=== PATIENT | female | born 1965 | race Caucasian/White ===

== ENCOUNTER 2019-04-06 06:17 | Outpatient (CLI) | payer BC ==
[2019-04-06 10:51] LABS: #Basophils 0.1 thou/uL (0.0-0.2); #Eosinphils 0.2 thou/uL (0.0-0.7); #Lymphocytes 1.6 thou/uL (1.20-3.40); #Monocytes 0.5 thou/uL (0.11-0.59); #Neutrophils 2.2 thou/uL (1.40-6.50); %Basophils 1.2 % (0.0-1.0); %Eosinophils 4.9 % (0.0-10.0); %Lymphocytes 35.5 % (21.0-51.0); %Neutrophils 47.4 % (42.0-75.0); Hemoglobin 12.3 g/dL (12.0-16.0); Mean Corpuscular HGB CONC 34.4 g/dL (32.0-36.0); Mean Corpuscular Hemoglobin 30.6 pg (27.0-31.0); Mean Corpuscular Volume 89.1 fL (78.0-98.0); Mean Platelet Volume 8.8 fL (7.4-10.4); Platelet Count 194 thou/uL (130-400); RBC Distribution Width 15.2 % (11.5-14.5); Red Blood Cell (RBC) Count 4.01 mill/uL (4.20-5.40); White Blood Cell (WBC) Count 4.6 thou/uL (4.8-10.8)
[2019-04-06 10:53] LABS: Bilirubin Negative (Negative); Blood, Urine Negative (Negative); Clarity Clear (Clear); Glucose, Urine (Dipstick) Normal (Negative); Leukocyte Negative Leu/uL (Negative); Nitrite Negative (Negative); Protein, Urine (Dipstick) Negative (Neg-Trace); RBC/HPF 0-3 HPF (0-3); Urobilinogen Normal mg/dL (Less than 2); WBC/HPF 0-3 HPF (0-3)
[2019-04-06 10:54] LABS: Bacteria/HPF 1+ HPF (None Seen)
--- NOTE | 2019-04-08 13:36 | EKG ---
Test Reason : Blood Pressure : / mmHG Vent. Rate : 059 BPM Atrial Rate : 059 BPM P-R Int : 142 ms QRS Dur : 072 ms QT Int : 430 ms P-R-T Axes : 029 050 051 degrees QTc Int : 425 ms Sinus bradycardia Cannot rule out Anterior infarct , age undetermined Abnormal ECG When compared with ECG of 30-AUG-2014 16:41, No significant change was found Confirmed by KONSTANTIN YOON (2) on 04/08/2019 1:36:25 PM Referred By: STEFANY Confirmed By:KONSTANTIN YOON
== END 2019-04-06 06:18 | disposition home or self-care (01) ==
LOC: LABBT 06:17
PROVIDERS: ATTEND Orthopaedic Surgery
DX: Z01.818 Encounter for other preprocedural examination (principal); G56.03 Carpal tunnel syndrome, bilateral upper limbs
CPT/HCPCS: 81001; 85025; 93005; 93010

== ENCOUNTER 2019-04-09 07:21 | Day surgery (SDC) | payer BC ==
[2019-04-06 09:39] VITALS: BMI 26.6
[2019-04-09] MEDS ORDERED: Lidocaine 1% w/Epinephrine 1:100K 20 ML VIAL ONE (09:50)
[2019-04-09] MEDS ORDERED: Fentanyl 100 MCG/2 ML VIAL ONE (10:11)
[2019-04-09] MEDS ORDERED: methylPREDNISolone Acetate 40 mg/ml Vial ONE (10:31)
[2019-04-09] MEDS ORDERED: Ondansetron PF 4 MG/2 ML Vial ONE (14:42)
[2019-04-09] MEDS ORDERED: ePHEDrine/0.9% NaCl/PF SYRINGE 50 mg/10 ml ONE (14:42)
[2019-04-09] MEDS ORDERED: Lidocaine 1% PF 5 ML VIAL ONE (14:42)
[2019-04-09] MEDS ORDERED: PROPOFOL 200 MG/20 ML VIAL ONE (14:42)
--- NOTE | 2019-04-09 15:31 | OP ---
DATE OF PROCEDURE: 04/09/2019 PREOPERATIVE DIAGNOSES: 1. Left carpal tunnel syndrome. 2. Right carpal tunnel syndrome. 3. Right trigger thumb. POSTOPERATIVE DIAGNOSES: 1. Left carpal tunnel syndrome. 2. Right carpal tunnel syndrome. 3. Right trigger thumb. PROCEDURES PERFORMED: 1. Right open carpal tunnel release. 2. Left open carpal tunnel release. 3. Right trigger thumb injection. ANESTHESIOLOGIST: Giovanni. ANESTHESIA: The patient received a general endotracheal intubation with 1% lido with epi 2mL preprocedure, 5 mL postprocedure and 1 mL with Depo-Medrol in the trigger thumb injection. ESTIMATED BLOOD LOSS: Less than 30 mL. TOURNIQUET TIME: Left hand, 4 minutes at 250 mmHg. Right, tourniquet time 5 minutes at 250 mmHg. ANTIBIOTICS: Ancef 2 g. COMPLICATIONS: None. HISTORY OF PRESENT ILLNESS: Ms. Acevedo is a pleasant 53-year-old female with history of bariatric surgery, bilateral carpal tunnel. The patient is right- hand dominant. I discussed with the patient the risks and benefits of bilateral carpal tunnel release and right trigger finger injection to include, pain, scar, bleeding, infection, damage to vital structures, damage to the nerve, need for further surgeries, continued pain despite surgical intervention, loss of life or limb. The patient understood these risks and benefits and elected to proceed. DESCRIPTION OF PROCEDURE: Time-out was performed designating the patient's right and left upper extremities as the operative site based on site, consents, and marking of a right for a trigger finger and open carpal tunnel release and left for just open carpal tunnel release. The patient understood the risks and benefits and elected to proceed. After time-out, the patient's procedure #1, on the left, tourniquet was brought up and left up for a total of 4 minutes. We made an incision proximal to the Stearns's cardinal line down to the thenar crease to the flexor, down through skin, bluntly dissected, came through palmar fascia up through the palmaris brevis and through the transverse carpal ligament. Proximally, I dissected to ensure we completed the released and no point of tether. The nerve was completely intact throughout its course, washed, let the tourniquet down, controlled bleeding and closed with 4-0 nylon stitches and placed a soft tissue dressing. Procedure #2, after time-out on the right side, we had brought the tourniquet up and left up for 5 minutes and we did incision proximal to the Stearns's cardinal line through the flexor crease in line with the fourth ray. We made a slight oblique through the flexor skin crease we came down through skin, through to the palmar fascia, came down through the patient's palmaris brevis and through the transverse carpal ligament, ensured to protect the nerve throughout its course to ensure that was completely decompressed. We washed. We controlled bleeding after let the tourniquet down to 5 minutes. We closed with 4-0 nylon. Based on this , we injected lidocaine 1 mL of Depo-Medrol for the patient's trigger thumb. I had injected before both procedures, 2 mL in line with the incision and 5 mL in the wounds of lidocaine with epinephrine postprocedure. The patient will be placed in a soft tissue dressing. She will follow up me in 10 to 12 days for suture removal. She can protect her hands with carpal tunnel splints on both sides. Job ID: [id number] [facility]
--- NOTE | 2019-04-09 15:33 | HP ---
CHIEF COMPLAINT: Bilateral hand pain. HISTORY OF PRESENT ILLNESS: Ms. Acevedo is a 53-year-old female with a history of bariatric surgery, presents with bilateral numbness and tingling. She had nerve conduction studies previously positive for bilateral carpal tunnel syndrome, pain being 7/10, numbness and tingling down both arms. PAST MEDICAL HISTORY: Gastric bypass. PAST SURGICAL HISTORY: Cyst, bypass, hemorrhoidectomy, bleeding. MEDICATIONS: Include 1. Amlodipine. 2. . 3. Bisoprolol and hydrochlorothiazide. 4. Bupropion. 5. Glucosamine and chondroitin. 6. Multivitamin. ALLERGIES: TO MORPHINE, NOT SPECIFIED. SOCIAL HISTORY: The patient is a [employer]. Former smoker. 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 The patient does drink His coffee. PHYSICAL EXAMINATION: GENERAL: Alert, oriented female, in no acute distress, resting in bed. EXTREMITIES: Right wrist shows thenar wasting. Sensation diminished at median distribution. Brisk cap refill. Full range of motion. Motor intact. The patient's left extremity shows median distribution to have decreased sensation, full range of motion, neurovascularly intact. Brisk cap refill. Right thumb shows clicking and locking at the A1 osmar. The patient has a locking of the thumb. Nerve conduction studies positive for carpal tunnel. IMPRESSION: 1. Bilateral carpal tunnel syndrome. 2. Right trigger thumb. ASSESSMENT AND PLAN: The patient will be taken to the operating suite for a right trigger thumb injection and bilateral carpal tunnel release. The patient was discussed risks, benefits, pain, scar, bleeding, infection, damage to vital structures and nerves, need for further surgeries, loss of life or limb, blood clots. The patient understands these risks and benefits increased risk of healing, wound complications for bariatric surgery. Job ID: [id number]
== END 2019-04-09 12:15 | disposition home or self-care (01) ==
LOC: SDC 07:21
PROVIDERS: ATTEND Orthopaedic Surgery
DX: G56.03 Carpal tunnel syndrome, bilateral upper limbs (principal); M65.311 Trigger thumb, right thumb; Z87.891 Personal history of nicotine dependence; Z79.899 Other long term (current) drug therapy; Z88.5 Allergy status to narcotic agent; Z98.84 Bariatric surgery status
CPT/HCPCS: J0690; J1030; J2001; J2405; J2704; J3010

== ENCOUNTER 2019-08-07 06:08 | Outpatient (CLI) | payer BC, OTHER ==
[2019-08-07 10:37] LABS: #Eosinphils 0.3 thou/uL (0.0-0.7); #Lymphocytes 1.5 thou/uL (1.20-3.40); #Monocytes 0.6 thou/uL (0.11-0.59); #Neutrophils 2.8 thou/uL (1.40-6.50); %Basophils 0.8 % (0.0-1.0); %Eosinophils 6.6 % (0.0-10.0); %Lymphocytes 28.7 % (21.0-51.0); %Monocytes 10.9 % (0.0-10.0); Hemoglobin 12.6 g/dL (12.0-16.0); Mean Corpuscular HGB CONC 32.1 g/dL (32.0-36.0); Mean Corpuscular Hemoglobin 31.4 pg (27.0-31.0); Mean Corpuscular Volume 97.6 fL (78.0-98.0); Mean Platelet Volume 9.8 fL (7.4-10.4); Platelet Count 205 thou/uL (130-400); RBC Distribution Width 12.6 % (11.5-14.5); Red Blood Cell (RBC) Count 4.03 mill/uL (4.20-5.40); White Blood Cell (WBC) Count 5.3 thou/uL (4.8-10.8)
[2019-08-07 10:57] LABS: Bacteria/HPF None Seen HPF (None Seen); Bilirubin Negative (Negative); Blood, Urine Negative (Negative); Clarity Clear (Clear); Glucose, Urine (Dipstick) Normal (Negative); Leukocyte Negative Leu/uL (Negative); Nitrite Negative (Negative); Protein, Urine (Dipstick) Negative (Neg-Trace); RBC/HPF 0-3 HPF (0-3); Squamous Epithelial 0-3 HPF (0-3); Urobilinogen Normal mg/dL (Less than 2); WBC/HPF None Seen HPF (0-3)
[2019-08-07 17:21] LABS: SARS-CoV-2 MS2 Positive; SARS-CoV-2 N Gene Negative; SARS-CoV-2 S Gene Negative; SARS-CoV-2 orf1ab Negative
== END 2019-08-07 06:09 | disposition home or self-care (01) ==
LOC: LABBT 06:08
PROVIDERS: ATTEND Orthopaedic Surgery Hand Surgery
DX: Z01.818 Encounter for other preprocedural examination (principal); Z11.59 Encounter for screening for other viral diseases; M65.311 Trigger thumb, right thumb
CPT/HCPCS: 81001; 85025; 87635; 93005; 93010; U0003

== ENCOUNTER 2019-08-10 13:21 | Day surgery (SDC) | payer BC ==
[2019-08-07 08:51] VITALS: BMI 28.3
[~2019-08-10 13:21] MED LIST: Dexamethasone 20 MG/5 ML VIAL ONE; EPHEDRINE 25 MG/5 ML SYRINGE ONE; Ketorolac Tromethamine 30 MG/ML VIAL ONE; Lidocaine 1% PF 5 ML VIAL ONE; Ondansetron PF 4 MG/2 ML Vial ONE; PHENYLEPHRINE-NS 100 MCG/ML 10 ML SYRINGE ONE; PROPOFOL 200 MG/20 ML VIAL ONE
[2019-08-10] MEDS ORDERED: Betamet Acet/Betamet Na Ph 30 MG/5 ML VIAL ONE (15:07)
[2019-08-10] MEDS ORDERED: Bacitracin Zinc Ointment 30 gm TUBE ONE (15:07)
[2019-08-10] MEDS ORDERED: Fentanyl 100 MCG/2 ML VIAL ONE ×4 (15:07→18:12)
[2019-08-10] MEDS ORDERED: Bupivacaine PF 0.5% 30 ML VIAL ONE (15:07)
[2019-08-10] MEDS ORDERED: Midazolam HCl 2 mg/2 ml Vial ONE (15:14)
[2019-08-10] MEDS ORDERED: HYDROcodone/Acetaminophen 5/325 mg Tablet ONE (18:36)
--- NOTE | 2019-08-11 00:31 | OP ---
DATE OF PROCEDURE: 08/10/2019 PREOP DIAGNOSIS: Advanced flexor A1 osmar tenosynovitis stage IV, where the patient had only trace flexion and it would lock. POSTOP DIAGNOSES: 1. The patient actually had a subacute tendon rupture with a 2 cm pseudo tendon formed over the entire ulnar 2/3 of the mass and the tendon strand connecting it still to the flexor pollicis longus from there to the carpal canal without further retraction. 2. Tenosynovitis of the flexor tendon from the A1 osmar level proximal. PROCEDURE PERFORMED: 1. A1 osmar release. 2. Flexor pollicis longus radical flexor tenosynovectomy thumb (finger) and palm. Palmar incision through the previous carpal tunnel incision. INJECTABLE: A total of 30 mL 0.5% Marcaine, 20 given before each incision and 10 given afterwards. DESCRIPTION OF PROCEDURE: After successful general endotracheal anesthesia, the limb was prepped and draped. We then outlined a zigzag incision over the A1 osmar. We then made the incision and carried it down through subcutaneous tissue, identified the radial and ulnar digital nerve branches and protected them and medially saw the A1 osmar was thick. We released the A1 osmar and then saw the tendon distal to the A1 osmar, but it was scarred to a pseudo sheath that began underneath the A1 osmar and then went proximally to release the pseudo sheath as far as we could see within this thumb incision and realized it we went into the palm. We then placed 2 mL of Celestone in this area. We then entered her previous carpal tunnel incision, released the transverse carpal ligament, and visualized the median nerve protector and its branches. We then lifted the flexor pollicis longus out and it was a bulbous, thickened, almost 1/3 compared the area of proximal portion of carpal tunnel as it went into its right angle curved up the thumb fibrosis canal. We then visualized marked tenosynovitis here, saw a strand of approximately 1.5 to 2 mm diameter of flexor tendon still intact as we had seen distally, but the remainder appeared to be pseudo sheath covered by flexor tenosynovium. We did not have a Darrell jesus available. We had not counseled the patient for a flexor tendon graft. For this reason, we left the pseudo sheath in place, performed a radical flexor tenosynovectomy, at that point, we could pull along the tendon and there was no flexion of the interphalangeal joint, but there was flexion of the MP joint and we pulled on the flexor pollicis longus tendon distal to the old A1 osmar remnant, but before the oblique osamr there was approximately 20 degree flexion of the interphalangeal joint indicative of the connection. The scar was released circumferentially around the connection, and in recovery room, she had approximately 15 degrees of active IP joint flexion. I explained it to her but I did not feel she could remember what happened, so I called the patient's mother who responded approximately 30 minutes after the procedure who I explained to her the following that: A. She had more than we thought she had. B. The choice would either be to perform a first-stage graft in the area that was scarred, but if I removed the scar and I do not have a Darrell jesus (which I did not) as none were available today in this operating room, then there will be retraction of the flexor pollicis longus tendon, making a tendon graft much more difficult and much longer. For this reason, we left the pseudo sheath in place. We plan to do an aggressive one stage or two staged procedure with Darrell jesus available at that stage. The incision was then closed. After obtaining hemostasis, we released the tourniquet approximately 35 minutes of the procedure. We had a pink digit, and the wounds were closed with interrupted 4-0 nylon in a simple pattern at the thumb A1 osmar region and in an interrupted mattress pattern at the carpal tunnel incision. Job ID: [id number]
== END 2019-08-10 19:30 | disposition home or self-care (01) ==
LOC: SDC 13:21
PROVIDERS: ATTEND Orthopaedic Surgery Hand Surgery
PROC: 0LN70ZZ Release Right Hand Tendon, Open Approach (ICD-10-PCS; principal; 2019-08-10)
PROC: 0LB70ZZ Excision of Right Hand Tendon, Open Approach (ICD-10-PCS; principal; 2019-08-10)
DX: M65.9 Synovitis and tenosynovitis, unspecified (principal); M65.311 Trigger thumb, right thumb; I10 Essential (primary) hypertension; F32.9 Major depressive disorder, single episode, unspecified; F17.210 Nicotine dependence, cigarettes, uncomplicated; Z79.899 Other long term (current) drug therapy; Z88.5 Allergy status to narcotic agent
CPT/HCPCS: J0690; J0702; J1100; J1885; J2001; J2250; J2405; J2704; J3010; S0020

== ENCOUNTER 2019-09-17 06:58 | Outpatient (CLI) | payer BC, OTHER ==
[2019-09-17 14:48] LABS: Anion Gap 14 mmol/L (10-20); BUN (Urea Nitrogen) 7 mg/dL (9.8-20.1); Calc. Creatinine Clearance 0 mL/min (70-130); Calcium 9.2 mg/dL (7.8-10.44); Carbon Dioxide 25 mmol/L (22-29); Chloride 98 mmol/L (98-107); Estimated GFR-MDRD 77; Glucose 66 mg/dL (70-105); Potassium 4.4 mmol/L (3.5-5.1); Sodium 133 mmol/L (136-145)
[2019-09-18 12:08] LABS: SARS-CoV-2 MS2 Positive; SARS-CoV-2 N Gene Negative; SARS-CoV-2 S Gene Negative; SARS-CoV-2 orf1ab Negative
== END 2019-09-17 06:59 | disposition home or self-care (01) ==
LOC: LABBT 06:58
PROVIDERS: ATTEND Orthopaedic Surgery Hand Surgery
DX: Z01.812 Encounter for preprocedural laboratory examination (principal); Z11.59 Encounter for screening for other viral diseases; S66.811A Strain of other specified muscles, fascia and tendons at wrist and hand level, right hand, initial encounter
CPT/HCPCS: 80048; 87635; U0003

== ENCOUNTER 2019-12-29 11:29 | Emergency (ER) | payer BC ==
[2019-12-29] MEDS ORDERED: Ondansetron PF 4 MG/2 ML Vial ONE (12:00)
[2019-12-29] MEDS ORDERED: Fentanyl 100 MCG/2 ML VIAL ONE ×2 (12:00→13:29)
--- NOTE | 2019-12-29 12:02 | RAD ---
Exam: XR Wrist 3 Lt View STANDARD HISTORY: Injury to left wrist after tripping and falling last night. COMPARISON: None FINDINGS: There is a minimally comminuted fracture involving the distal left radial metaphysis. Distal fracture fragment is displaced dorsally by approximately 10 mm. There is slight volar angulation of the fracture fragments. Distal fracture fragment is also slightly displaced laterally. There is suggestio n of a tiny avulsion fracture involving the ulnar styloid process. No additional fracture is seen, and there is no dislocation. IMPRESSION: Mildly displaced, slightly impacted and slightly comminuted fracture involving the distal left radial metaphysis. Tiny avulsion fracture ulnar styloid process is present.
--- NOTE | 2019-12-29 12:05 | RAD ---
XR Forearm Lt 2 View STANDARD HISTORY: Injury, left distal forearm pain FINDINGS: There is a angulated and displaced fracture involving the distal radial metaphysis.
[2019-12-29] MEDS ORDERED: Ketamine 50 MG/ML (10ML VIAL) ONE (12:57)
--- NOTE | 2019-12-29 13:40 | RAD ---
Left wrist 2 views HISTORY: Wrist fracture. COMPARISON: Earlier exam on the same date. FINDINGS: Overlying fiberglass splint. Comminuted distal radial fracture is again demonstrated with n ear complete reduction in the posterior displacement of the distal fragment. Dorsal angulation persists. Other findings are stable.
== END 2019-12-29 14:16 | disposition home or self-care (01) ==
LOC: ERS 11:29
DX: S52.502A Unspecified fracture of the lower end of left radius, initial encounter for closed fracture (principal); I10 Essential (primary) hypertension; F17.210 Nicotine dependence, cigarettes, uncomplicated; W01.0XXA Fall on same level from slipping, tripping and stumbling without subsequent striking against object, initial encounter
CPT/HCPCS: 25605; 96374; 96375; 96376; 99152; J2405; J3010

== ENCOUNTER 2019-12-30 11:12 | Outpatient (CLI) | payer BC, OTHER ==
[2019-12-30 14:12] LABS: #Basophils 0.1 thou/uL (0.0-0.2); #Eosinphils 0.3 thou/uL (0.0-0.7); #Lymphocytes 1.5 thou/uL (1.20-3.40); #Monocytes 0.7 thou/uL (0.11-0.59); #Neutrophils 2.5 thou/uL (1.40-6.50); %Basophils 1.1 % (0.0-1.0); %Eosinophils 6.4 % (0.0-10.0); %Lymphocytes 29.3 % (21.0-51.0); %Monocytes 13.8 % (0.0-10.0); %Neutrophils 49.4 % (42.0-75.0); Hemoglobin 12.9 g/dL (12.0-16.0); Mean Corpuscular HGB CONC 33.5 g/dL (32.0-36.0); Mean Corpuscular Hemoglobin 32.6 pg (27.0-31.0); Mean Corpuscular Volume 97.3 fL (78.0-98.0); Mean Platelet Volume 9.8 fL (7.4-10.4); Platelet Count 198 thou/uL (130-400); RBC Distribution Width 12.9 % (11.5-14.5); Red Blood Cell (RBC) Count 3.95 mill/uL (4.20-5.40); White Blood Cell (WBC) Count 5.1 thou/uL (4.8-10.8)
[2019-12-30 18:58] LABS: SARS-CoV-2 MS2 Positive; SARS-CoV-2 N Gene Negative; SARS-CoV-2 S Gene Negative; SARS-CoV-2 by NAA Not Detected (NotDetected); SARS-CoV-2 orf1ab Negative
== END 2019-12-30 11:13 | disposition home or self-care (01) ==
LOC: LABBT 11:12
PROVIDERS: ATTEND Orthopaedic Surgery Hand Surgery
DX: Z01.812 Encounter for preprocedural laboratory examination (principal); Z20.828 Contact with and (suspected) exposure to other viral communicable diseases; S52.502A Unspecified fracture of the lower end of left radius, initial encounter for closed fracture
CPT/HCPCS: 85025; 87635; U0003

== ENCOUNTER 2020-01-04 14:11 | Day surgery (SDC) | payer BC ==
[2019-12-31 15:55] VITALS: BMI 28.3
[~2020-01-04 14:11] MED LIST changes: -PHENYLEPHRINE-NS 100 MCG/ML 10 ML SYRINGE ONE
[2020-01-04 16:07] LABS: Anion Gap 12 mmol/L (10-20); BUN (Urea Nitrogen) 7 mg/dL (9.8-20.1); Calc. Creatinine Clearance 107 mL/min (70-130); Calcium 8.8 mg/dL (7.8-10.44); Carbon Dioxide 25 mmol/L (22-29); Chloride 102 mmol/L (98-107); Estimated GFR-MDRD 82; Glucose 91 mg/dL (70-105); Potassium 3.7 mmol/L (3.5-5.1); Sodium 135 mmol/L (136-145)
[2020-01-04] MEDS ORDERED: Bacitracin Zinc Ointment 30 gm TUBE ONE (17:51)
[2020-01-04] MEDS ORDERED: EPINEPHrine 1 MG/ML AMP ONE (17:51)
[2020-01-04] MEDS ORDERED: Bupivacaine PF 0.5% 30 ML VIAL ONE (17:51)
[2020-01-04] MEDS ORDERED: Sodium Chloride 0.9% 10 ML ONE (17:51)
[2020-01-04] MEDS ORDERED: Fentanyl 100 MCG/2 ML VIAL ONE (17:57)
--- NOTE | 2020-01-04 20:42 | RAD ---
LEFT WRIST THREE VIEWS: History: Intraoperative film FINDINGS: There has open reduction internal fixation of the distal radial fracture with plate and screws. IMPRESSION: Open reduction/internal fixation of the distal radial fracture. POS: OFF
[2020-01-04] MEDS ORDERED: HYDROcodone/Acetaminophen 5/325 mg Tablet ONE (21:29)
--- NOTE | 2020-01-05 12:07 | OP ---
DATE OF PROCEDURE: 01/04/2020 PREOPERATIVE DIAGNOSIS: Displaced three-part distal radius fracture. POSTOPERATIVE DIAGNOSIS: Displaced three-part distal radius fracture. FINDINGS: Minimal articular split medial fragment and the radial styloid with no intraarticular crush or loss of height. PROCEDURES PERFORMED: 1. C-arm supervision. 2. Open reduction and internal fixation of three-part distal radius fracture with Synthes low-profile volar distal radius plate. TOURNIQUET TIME: Fifty-six minutes. BLOOD LOSS: 10 mL. DESCRIPTION OF PROCEDURE: After successful general endotracheal anesthesia, the limb was prepped and draped. The patient then had the C-arm brought to the field, confirmed displacement of fracture and we decided to do open fixation. Limb was exsanguinated, tourniquet inflated to 250 mmHg pressure and the block was excellent. We developed a zigzag incision centered over the flexor carpi radialis muscle. We entered the interval between the FCR and the radial artery to approach the pronator quadratus. Pronator quadratus was released from the radial side, we then teased the brachioradialis off the radial styloid, and then made our open reduction. Open reduction was made anatomic. Used standard reduction technique with a baby Hohmann of the proximal fragment pushing it in a radial direction (ulnar radial) to maintain nearly anatomic as possible reduction where the fracture was most comminuted at the distal radioulnar joint. Once this was done, we then passed two K-wires to the radial styloid across the fracture obliquely to 0.1 cm proximal to the fracture line. We then placed a Synthes low-profile distal radius plate with four holes subjacent to the joint, placed the distal holes first to achieve slightly more tilt until we had approximately 10 degrees of palmar tilt. The proximal screws were placed, we had excellent fixation feel. No subcondylar comminution, fracture line comminution was controlled with the plate, screws and intraarticular portion was anatomic with a 1.5 mm radial positive wrist. There was no click or clunk or crepitus with the rotational motion. The patient then had tourniquet deflated, hemostasis obtained. We closed the pronator quadratus of the capsule interval with an interrupted [id number] 0 Vicryl. Hemostasis was excellent. We then closed subchondral. We closed the subcutaneous skin with a running 3-0 Monocryl and the epidermal layer with interrupted 4-0 nylon mattress pattern. Additional 10 cc was given 0.5% Marcaine around the incision. A bulky dressing with bacitracin, Adaptic 4x4, Kerlix, and a sugar-tong applied. The patient left the operating room without evidence of anesthetic or operative complication. Job ID: [id number]
== END 2020-01-04 22:00 | disposition home or self-care (01) ==
LOC: SDC 14:11
PROVIDERS: ATTEND Orthopaedic Surgery Hand Surgery
PROC: 0PSJ04Z Reposition Left Radius with Internal Fixation Device, Open Approach (ICD-10-PCS; principal; 2020-01-04)
DX: S52.532A Colles' fracture of left radius, initial encounter for closed fracture (principal); M65.311 Trigger thumb, right thumb; I10 Essential (primary) hypertension; Z79.899 Other long term (current) drug therapy; Z88.5 Allergy status to narcotic agent
CPT/HCPCS: 36415; 76000; 80048; C1713; J0171; J0690; J1100; J1885; J2405; J2704; J3010; J3490; S0020

== ENCOUNTER 2020-06-14 09:02 | Outpatient (CLI) | payer BC | END 2020-06-14 09:03 | disposition home or self-care (01) | LOC: BICMAMMO 09:02 | PROVIDERS: ATTEND Family Medicine | DX: Z12.31 Encounter for screening mammogram for malignant neoplasm of breast (principal) | CPT/HCPCS: 77063; 77067 ==

== ENCOUNTER 2020-09-23 11:26 | Outpatient (CLI) | payer BC | END 2020-09-23 11:27 | disposition home or self-care (01) | LOC: BICCT 11:26 | PROVIDERS: ATTEND Family Medicine | DX: Z12.2 Encounter for screening for malignant neoplasm of respiratory organs (principal); F17.210 Nicotine dependence, cigarettes, uncomplicated | CPT/HCPCS: 71271 ==

== ENCOUNTER 2021-08-18 12:08 | Outpatient (CLI) | payer BC | END 2021-08-18 12:09 | disposition home or self-care (01) | LOC: BICMAMMO 12:08 | PROVIDERS: ATTEND Family Medicine | DX: Z12.31 Encounter for screening mammogram for malignant neoplasm of breast (principal) | CPT/HCPCS: 77063; 77067 ==

== ENCOUNTER 2021-09-26 08:15 | Outpatient (CLI) | payer BC | END 2021-09-26 08:16 | disposition home or self-care (01) | LOC: BICCT 08:15 | PROVIDERS: ATTEND Family Medicine | DX: Z12.2 Encounter for screening for malignant neoplasm of respiratory organs (principal); F17.210 Nicotine dependence, cigarettes, uncomplicated; I25.10 Atherosclerotic heart disease of native coronary artery without angina pectoris | CPT/HCPCS: 71271 ==

== ENCOUNTER 2022-11-20 19:30 | Outpatient (CLI) | payer BC | END 2022-11-20 19:31 | disposition home or self-care (01) | LOC: SLEEPLAB 19:30 | PROVIDERS: ATTEND Family Medicine | DX: G47.33 Obstructive sleep apnea (adult) (pediatric) (principal); F32.A Depression, unspecified; R06.83 Snoring | CPT/HCPCS: 95810 ==

== ENCOUNTER 2022-11-29 13:20 | Outpatient (CLI) | payer BC | END 2022-11-29 13:21 | disposition home or self-care (01) | LOC: BICMAMMO 13:20 | PROVIDERS: ATTEND Family Medicine | DX: Z12.31 Encounter for screening mammogram for malignant neoplasm of breast (principal) | CPT/HCPCS: 77063; 77067 ==

== ENCOUNTER 2023-01-03 17:00 | Outpatient (CLI) | payer BC | END 2023-01-03 17:01 | disposition home or self-care (01) | LOC: SLEEPLAB 17:00 | PROVIDERS: ATTEND Family Medicine | DX: G47.33 Obstructive sleep apnea (adult) (pediatric) (principal); F32.A Depression, unspecified; R06.83 Snoring | CPT/HCPCS: 95811 ==